=== PATIENT | female | born 1965 | race Caucasian/White ===

== ENCOUNTER 2024-09-24 10:39 | Emergency (ER) | payer MEDICARE, MEDICAID ==
[~2024-09-24] VITALS: Ht 172.7 cm; Wt 76.9 kg
[~2024-09-24 10:39] MED LIST: ALPR-624 PO; ARIP5TAB12 PO; CALC-964 PO; CIPRO PO; DIT5T PO; DULO-31 PO; HYDR8TAB16 PO; MORP15TA PO; VARE0.5T PO; b6
[2024-09-24 10:45] VITALS: BP 134/92; PULSE 82; RESP 16; TEMP 98.6; O2SAT 98
[2024-09-24] MEDS ORDERED: DICL20GE TOP (12:17)
[2024-09-24] MEDS ORDERED: IBUP-864 PO (12:17)
== END 2024-09-24 12:43 | disposition home or self-care (01) ==
LOC: ER 10:39
DX: G89.29 Other chronic pain (principal); M25.562 Pain in left knee; Z79.899 Other long term (current) drug therapy
CPT/HCPCS: 99283

== ENCOUNTER 2024-11-13 05:49 | Outpatient (CLI) | payer MEDICARE, MEDICAID ==
[~2024-11-13 05:49] MED LIST changes: +DICL20GE TOP; +IBUP-864 PO
== END 2024-11-13 23:59 | disposition home or self-care (01) ==
LOC: MRI02 05:49
PROVIDERS: ATTEND Physician Assistant Surgical
DX: S83.241A Other tear of medial meniscus, current injury, right knee, initial encounter (principal); S83.242A Other tear of medial meniscus, current injury, left knee, initial encounter; M79.4 Hypertrophy of (infrapatellar) fat pad; M67.462 Ganglion, left knee; M70.52 Other bursitis of knee, left knee; M94.261 Chondromalacia, right knee; M94.262 Chondromalacia, left knee; M25.461 Effusion, right knee; M25.562 Pain in left knee; M25.561 Pain in right knee; X58.XXXA Exposure to other specified factors, initial encounter; Y93.89 Activity, other specified; Y92.89 Other specified places as the place of occurrence of the external cause; Y99.8 Other external cause status
CPT/HCPCS: 73721

== ENCOUNTER 2025-05-04 09:33 | Emergency (ER) | payer MEDICARE, MEDICAID ==
[~2025-05-04] VITALS: Ht 172.7 cm; Wt 82.9 kg
[~2025-05-04 09:33] MED LIST changes: +ACET-1025 PO; -ALPR-624 PO; -ARIP5TAB12 PO; -CALC-964 PO; +CEFD300C3 PO; -CIPRO PO; -DICL20GE TOP; -DIT5T PO; -DULO-31 PO; +HYDR-3964 PO; -HYDR8TAB16 PO; -IBUP-864 PO; -MORP15TA PO; +ONDA-243 PO; -VARE0.5T PO; +ZINC220T3 PO; -b6
--- NOTE | 2025-05-04 10:05 | Physician Documentation ---
History of Present Illness Chief Complaint: Abdominal Pain w/vomiting Stated Complaint: MULTIPLE MED COMPLAINTS Time Seen by MD: 09:58 HPI 59-year-old female presents to the ED with a complaint of left lower quadrant pain with and diarrhea for one day. States she also has lower back pain. She was recently treated for a kidney infection in late April. Denies any fevers reports having occasional dry heaves. Medication Reconciliation Allergies: Coded Allergies: gluten (Verified Allergy, Intermediate, 05/04/25) milk (Verified Allergy, Intermediate, 05/04/25) tomato (Verified Allergy, Intermediate, 05/04/25) Scheduled Cefdinir* (Cefdinir*), 1 CAP PO Q12H Loperamide HCl (Imodium A-D), 1 CAP PO Q8H Zinc Sulfate (Zinc), 1 TAB PO DAILY, (Reported) Scheduled PRN Acetaminophen (Tylenol Extra Strength), 1 TAB PO TID PRN PRN for pain or fever, (Reported) Hydrocodone Bit/Acetaminophen (Hydrocodon-Acetaminophen 5-325), 1 EACH PO Q6H PRN for severe pain (7-10) ONDANSETRON ODT 4mg tablet (Ondansetron Odt), 1 TAB PO Q6H PRN for nausea/vomiting Past Medical History Past Medical History: UTI, Arthritis, Chronic Pain, Anxiety, Bipolar, Depression, Panic Disorder Patient History: CLL (chronic lymphoid leukemia) MOTHER Cervical cancer MOTHER FH: diabetes mellitus MOTHER FH: heart disease FATHER, Born 07/04/45, Age: 79 MOTHER FH: lung cancer FATHER, Born 07/04[birth year]45, Age: 79 FH: prostate cancer FATHER, Born 07/04/45, Age: 79 Alcohol Use: None Drug Use: none Physical Exam Vital Signs: Heart Rate: 85, Respiratory Rate: 15, BP: 136/89, Pulse Oximetry: 100, Weight: 82.900 Oxygen Flow Rate: 0 Progress Results/Orders Results/Orders Vital Signs 05/04/25 09:40 Pulse 85 Resp 15 B/P (MAP) 136/89 Pulse Ox 100 O2 Flow Rate 0 Medical Decision Making Findings This 59-year-old female on likely has a diarrhea secondary to recent oral antibiotic prescriptions for values do not show any signs of concerned including electrolyte abnormality prescribed Imodium ED and discharge her. Differential Dx:Considerations: Include: AAA, -Complete, - Incomplete, -Inevitable, -Missed, -Threatened, Abruptio placentae, Angina/LA, Aortic dissection, Appendicitis, Bowel obstruction, Cholangitis, Cholelithasis, Constipation, Diverticular disease, Esophageal rupture, Esophagitis, Gastritis/PUD, Gastroenteritis, GI hemorrhage, Hernia, Hepatitis, Inflammatory BD, Ischemic bowel, Ovarian cyst/torsion, Pancreatitis, PID, Porphyria, Trauma, intraabdominal, Urinary obstruction, Urinary tract infection, Urolithiasis, Other Departure Disposition: HOME / SELF CARE / HOMELESS Impression: Primary Impression: Diarrhea Condition: Stable Referrals: NO PRIMARY CARE PROVIDER (PCP) Prescriptions Loperamide HCl (Imodium A-D) 2 Mg Capsule 1 CAP PO Q8H for 5 Days, #15 CAP 0 Refills Prov: LOUIS PABON NP 05/04/25 Signature Scribe Signature: randell Attestation: Scribed for Louis Pabon Np by Louis Ruiz NP . 05/04/25 10:04 LOUIS PABON NP May 04, 2025 10:05
[2025-05-04 10:12] LABS: MEAN PLATELET VOLUME 7.1 FL (7.4-10.4); RED CELL DISTRIBUTION WIDTH 13.6 % (11.5-14.5)
[2025-05-04 10:26] LABS: CREATININE 0.81 MG/DL (0.40-0.90); TOTAL CARBON DIOXIDE 26.6 MMOL/L (24-32); eCRCL 77 ML/MIN; eGFR 73 ML/MIN
[2025-05-04 10:30] LABS: LEUKOCYTE ESTERASE ,URINE NEGATIVE (Neg); NITRITES, URINE NEGATIVE (Neg); OCCULT BLOOD,URINE NEGATIVE (Neg)
[2025-05-04 10:33] LABS: URINE HCG NEGATIVE (NEG)
[2025-05-04 10:35] LABS: UA COLLECTION TYPE CLN CATCH MIDSTREAM
[2025-05-04] MEDS ORDERED: LOPE-190 PO (10:53)
[2025-05-04 11:12] VITALS: BP 113/77; PULSE 68; RESP 15; O2SAT 100
== END 2025-05-04 11:21 | disposition home or self-care (01) ==
LOC: ER 09:33
DX: R19.7 Diarrhea, unspecified (principal); R10.32 Left lower quadrant pain; M54.50 Low back pain, unspecified; F31.9 Bipolar disorder, unspecified; M19.90 Unspecified osteoarthritis, unspecified site; Z91.011 Allergy to milk products; Z91.018 Allergy to other foods
CPT/HCPCS: 36415; 80053; 81003; 81025; 83690; 85025; 99283